=== PATIENT | male | born 1960 | race Caucasian/White ===

== ENCOUNTER 2025-04-21 06:55 | Emergency (ER) | payer MEDICARE ==
[~2025-04-21] VITALS: Ht 177.8 cm; Wt 90.9 kg
[2025-04-21 06:59] VITALS: TEMP 97.6
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
[2025-04-21] MEDS: normal saline 1000ml 1,000 ML IV ONE (09:40)
--- NOTE | 2025-04-21 09:43 | RADIOLOGY REPORT ---
CHEST RADIOGRAPH INDICATION: cold and cough TECHNIQUE: Single frontal view of the chest was obtained COMPARISON: None FINDINGS: Lines and Tubes: None Lungs: No focal consolidation. Pleura: No effusion. No pneumothorax. Cardiomediastinal contours: Unremarkable Bones: No acute osseous abnormality. IMPRESSION: No acute cardiopulmonary disease.
[2025-04-21 09:49] LABS: MEAN PLATELET VOLUME 8.6 FL (7.4-10.4); RED CELL DISTRIBUTION WIDTH 13.1 % (11.5-14.5)
--- NOTE | 2025-04-21 09:50 | RADIOLOGY REPORT ---
Left HIP RADIOGRAPH. CLINICAL INDICATION: left hip pain TECHNIQUE: 3 views of the left hip were obtained. FINDINGS: There is no evidence of fracture, subluxation or dislocation. Severe left hip osteoarthritis. Moderate right hip osteoarthritis .The bony mineralization is normal.No radiopaque foreign body is identified. IMPRESSION: 1. No evidence of acute bony injury.
[2025-04-21 10:08] LABS: CREATININE 0.86 MG/DL (0.60-1.10); TOTAL CARBON DIOXIDE 24.8 MMOL/L (24-32); eCRCL 88 ML/MIN; eGFR 89 ML/MIN
[2025-04-21 11:26] VITALS: BP 145/70; PULSE 75; RESP 16; O2SAT 98
== END 2025-04-21 12:05 | disposition home or self-care (01) ==
LOC: ER 06:56
DX: B34.9 Viral infection, unspecified (principal); M25.552 Pain in left hip; I10 Essential (primary) hypertension; Z72.89 Other problems related to lifestyle; Z60.2 Problems related to living alone; Z98.890 Other specified postprocedural states
CPT/HCPCS: 36415; 71045; 73502; 80053; 83605; 84443; 85025; 99284